=== PATIENT | female | born 1945 | race Caucasian/White ===

== ENCOUNTER 2019-02-05 06:23 | Day surgery (SDC) | payer MEDICARE ==
[2019-02-05] MEDS ORDERED: Lactated Ringers 1,000 ML IV SCH (06:30)
[2019-02-05] MEDS ORDERED: DIPRIVAN 200 MG/20 ML IV ONE (08:10)
[2019-02-05 09:20] VITALS: BP 138/67; PULSE 61; O2SAT 97
--- NOTE | 2019-02-06 08:14 | OP ---
SURGERY DATE/TIME: 02/05/2019 0807 PREOPERATIVE DIAGNOSES: 1) History of gastroesophageal ulcer. 2) History of colon polyps. POSTOPERATIVE DIAGNOSES: 1) Small hiatal hernia. 2) Normal colon. PROCEDURES: 1) EGD. 2) Colonoscopy. SURGEON: Rigo Chand M.D. ANESTHESIA: MAC by Tyrone Velez CRNA. ESTIMATED BLOOD LOSS: None. SPECIMENS: None. DESCRIPTION OF PROCEDURE: After informed written consent was obtained, the patient was taken to the endoscopy suite. She underwent monitored anesthesia after a bite block was inserted. The endoscope inserted into posterior oropharynx and under direct visualization the esophageal mucosa was traversed. There is a normal esophageal mucosal appearance upon entry into the gastroesophageal junction. Likewise there was no obvious mucosal abnormalities. The stomach had a normal rugated gastric mucosa free of lesions or defects. The pylorus was identified and traversed and the first and second portions of the duodenum had a normal mucosal appearance. Upon withdrawal retroflexion revealed a small hiatal hernia. No other abnormalities were encountered. The scope was carefully withdrawn and again no mucosal abnormalities were appreciable in the esophageal mucosa upon withdrawal. The scope was removed and the scopes were switched. Digital rectal exam showed normal sphincter tone and no internal lesions. The scope was inserted in the rectum and sequentially the entire colonic mucosa was traversed. The level of cecum was reached and verified with direct visualization of the ileocecal valve. Upon withdrawal careful mucosal inspection revealed no obvious abnormalities. Prep was noted to be good. Prior to withdrawal retroflexion was performed and showed no internal lesions. The scope was removed and the patient was transferred to the recovery room in good condition.
== END 2019-02-05 09:38 | disposition home or self-care (01) ==
LOC: SDC 06:23
PROVIDERS: ATTEND Family Medicine
DX: Z09 Encounter for follow-up examination after completed treatment for conditions other than malignant neoplasm (principal); Z86.010 Personal history of colon polyps; K44.9 Diaphragmatic hernia without obstruction or gangrene; Z87.11 Personal history of peptic ulcer disease; I10 Essential (primary) hypertension
CPT/HCPCS: 99100; J2704